=== PATIENT | male | born 1960 | race Caucasian/White ===

== ENCOUNTER 2019-02-13 10:40 | Emergency (ER) | payer BC ==
[~2019-02-13] VITALS: Ht 177.8 cm; Wt 70.3 kg
[2019-02-13 10:55] VITALS: BP 160/92
--- NOTE | 2019-02-13 11:11 | NUR ---
SEEN AND EXAMINED BY DR. LOUIE
[2019-02-13] MEDS ORDERED: KETOROLAC TROMETHAMINE INJ 30 MG/ML VIAL ONE (11:14)
--- NOTE | 2019-02-13 11:20 | NUR ---
[employer] AT BEDSIDE FOR XRAY.
[2019-02-13] MEDS ORDERED: KETOROLAC TROMETHAMINE INJ 60 MG/2 ML VIAL IM ONE (11:30)
--- NOTE | 2019-02-13 12:32 | NUR ---
Patient discharged to home in stable condition. Written and verbal after care instructions given. Patient verbalizes understanding of instruction.
== END 2019-02-13 12:38 | disposition home or self-care (01) ==
LOC: ER 10:45
DX: M54.6 Pain in thoracic spine (principal); G89.29 Other chronic pain; Z98.890 Other specified postprocedural states; Z60.2 Problems related to living alone
CPT/HCPCS: 72070; 72100; 96372; 99283; J1885